=== PATIENT | female | born 1960 | race Caucasian/White ===

== ENCOUNTER → 2025-04-28 | Outpatient (CLI) | payer MEDICARE ==
[~2025-04-28] MED LIST: IOHEXOL 350 MG/ML 100ML INFUS..BTL IV ONE
--- NOTE | 2025-04-28 11:01 | HMCIMG ---
CT Angiogram of the abdomen and pelvis without and with IV contrast HISTORY: Splenic artery aneurysm TECHNIQUE: CT angiogram protocol. Axial imaging pre- and post-IV contrast, arterial and venous phase postcontrast imaging. 2D and 3D reformatted images performed and reviewed. 3D imaging performed under the concurrent supervision of the radiologist. Automatic exposure control was utilized for dose reduction. 100 mL of Omnipaque 350 IV contrast administered. COMPARISON: None Angiographic findings: There is mild generalized atherosclerosis. Celiac axis: Patent. The splenic artery appears to be tortuous. There is suspicion for possible aneurysm at the level of the splenic hilum.. SMA: Patent PATRICK: Patent Renal arteries: Patent Abdominal aorta: No stenosis or aneurysm is occasional calcified plaque. Common iliac arteries: No significant stenosis or aneurysm Right external iliac, common femoral, proximal superficial femoral and deep femoral arteries: Patent Left external iliac, common femoral, proximal superficial femoral and deep femoral arteries: Patent Internal iliac arteries: Patent bilaterally Nonangiographic findings: The remaining abdomen and pelvis demonstrate grade 1 hepatic steatosis the liver. The gallbladder is surgically absent. IMPRESSION: 1. Due to tortuosity, there is Suspicion for splenic artery aneurysm at the level of the hilum. I would recommend conventional splenic artery arteriogram with possible embolization which can be performed in interventional suite.
== END | disposition home or self-care (01) ==
LOC: RAH 08:12
PROVIDERS: ATTEND Student in an Organized Health Care Education/Training Program
DX: K76.0 Fatty (change of) liver, not elsewhere classified (principal); I72.8 Aneurysm of other specified arteries; I70.90 Unspecified atherosclerosis; I77.1 Stricture of artery; Z90.49 Acquired absence of other specified parts of digestive tract
CPT/HCPCS: 74174; Q9967